=== PATIENT | female | born 1955 | race Caucasian/White ===

== ENCOUNTER → 2017-04-27 | Outpatient (CLI) | payer BC ==
[~2017-04-27] MED LIST: OMNIPAQUE 350 MG/ML, 100ML BOTTLE ONE
== END | disposition home or self-care (01) ==
LOC: CFH 09:10
PROVIDERS: ATTEND Family Medicine
DX: K63.9 Disease of intestine, unspecified (principal); M85.459 Solitary bone cyst, unspecified pelvis; N93.9 Abnormal uterine and vaginal bleeding, unspecified; Z85.3 Personal history of malignant neoplasm of breast; Z90.710 Acquired absence of both cervix and uterus
CPT/HCPCS: 72193; Q9967

== ENCOUNTER → 2020-04-01 | Outpatient (CLI) | payer MEDICARE | END | disposition home or self-care (01) | LOC: CFH 09:11 | PROVIDERS: ATTEND Nurse Practitioner Family | DX: N95.8 Other specified menopausal and perimenopausal disorders (principal); M85.80 Other specified disorders of bone density and structure, unspecified site; Z85.3 Personal history of malignant neoplasm of breast | CPT/HCPCS: 77080 ==